=== PATIENT | male | born 1985 | race Caucasian/White ===

== ENCOUNTER 2019-05-27 19:41 | Emergency (ER) | payer BC, OTHER ==
[~2019-05-27] VITALS: Ht 172.7 cm; Wt 74.8 kg
[2019-05-27] MEDS: NS IV 1000 ML 1,000 ML IV SCH (20:39)
[2019-05-27] MEDS: fentaNYL INJECTION 100 MCG/2 ML AMP IVP ONE (20:39)
--- NOTE | 2019-05-27 20:45 | Diagnostic Imaging Report ---
INDICATION: Left knee pain after injury. COMPARISON: None available. TECHNIQUE: AP and lateral views of the left tibia and fibula were obtained. FINDINGS: There is an acute and mildly comminuted fracture involving the proximal tibia. The fracture extends to the metaphysis and likely into the medial tibial plateau articular surface. The degree of articular surface depression is limited on this examination. No fracture in the more distal aspect of the tibia or fibula. IMPRESSION: Acute, mildly comminuted fracture of the proximal tibia involves the metaphysis and medial tibial plateau. The degree of articular surface depression is limited in assessment on this exam. Consider CT of the left knee without contrast for more complete details. Dictated by: Dictated on workstation # [id number]
--- NOTE | 2019-05-27 20:48 | ED Lower Extremity ---
General Chief Complaint: Lower Extremity Stated Complaint: KNEE INJ Nursing Triage Note: PT WAKEBOARDING AND FELL OFF INJURING LEFT KNEE Nursing Sepsis Screen: No Definite Risk Source: patient Exam Limitations: no limitations History of Present Illness Date Seen by Provider: May 27, 2019 Time Seen by Provider: 20:20 Initial Comments The patient is a pleasant 33-year-old male presents for evaluation of a left lower extremity injury which she sustained while wake boarding. He states that he fell down hard and landed on his knee. He has been unable to bear weight and felt a pop in his leg. Upon arrival he has an obvious deformity to the left knee. He denies any other complaints or injuries. He is alert and oriented 4, calm, and appears to be in no distress aside. Onset: just prior to arrival Pain/Injury Location: left knee Method of Injury: fell Modifying Factors: Improves With Movement (makes it worse) Allergies and Home Medications Allergies Coded Allergies: No Known Drug Allergies (Unverified , 05/27/19) Patient Home Medication List Home Medication List Reviewed: Yes Review of Systems Constitutional: no symptoms reported EENTM: no symptoms reported Respiratory: no symptoms reported Cardiovascular: no symptoms reported Gastrointestinal: no symptoms reported Genitourinary: no symptoms reported Musculoskeletal: joint swelling (left knee swelling and pain) Skin: no symptoms reported Psychiatric/Neurological: No Symptoms Reported All Other Systems Reviewed Negative Unless Noted: Yes Past Tcfwwkj-Vuqiod-Vzgwxw Hx Past Med/Social Hx: Reviewed Nursing Past Med/Soc Hx Patient Social History Alcohol Use: Denies Use Recreational Drug Use: No Smoking Status: Never a Smoker 2nd Hand Smoke Exposure: No Recent Foreign Travel: No Contact w/Someone Who Travel: No Recent Infectious Disease Expo: No Recent Hopitalizations: No Physical Abuse: No Sexual Abuse: No Mistreated: No Past Medical History Surgeries: No Respiratory: No Cardiac: No Neurological: No Genitourinary: No Gastrointestinal: No Musculoskeletal: No Endocrine: No HEENT: No Cancer: No Psychosocial: No Integumentary: No Blood Disorders: No Physical Exam Vital Signs Vital Signs - First Documented 05/27/19 19:48 Temp 97.8 Pulse 90 Resp 18 B/P (MAP) 116/85 (95) Pulse Ox 98 O2 Delivery Room Air Capillary Refill : Less Than 3 Seconds Height, Weight, BMI Height: 5'8.00" Weight: 165lbs. oz. 74.420800ik; BMI Method:Stated General Appearance: WD/WN, no apparent distress Neck: non-tender, full range of motion, supple Cardiovascular: regular rate, rhythm, no edema Respiratory: chest non-tender, lungs clear, normal breath sounds, no respiratory distress, no accessory muscle use Gastrointestinal: normal bowel sounds, soft Back: normal inspection Hips: bilateral hip non-tender, bilateral hip normal inspection, bilateral hip normal range of motion Knees: left knee bone tenderness, left knee deformity, left knee pain, left knee soft tissue tenderness, left knee swelling Ankles: bilateral ankle non-tender, bilateral ankle normal inspection, bilateral ankle normal range of motion, bilateral ankle no evidence of injury Feet: bilateral foot non-tender, bilateral foot normal inspection, bilateral foot normal range of motion, bilateral foot no evidence of injury Neurologic/Tendon: normal sensation, normal motor functions, normal tendon functions Neurologic/Psychiatric: rosin barrel filler II-XII nml as tested, no motor/sensory deficits, alert, normal mood/affect, oriented x 3 Skin: normal color, warm/dry Progress/Results/Core Measures Results/Orders My Orders Orders - EMILY CHATMAN DO Tibia Fibula 2 View Left (05/27/19 20:11) Ed Iv/Invasive Line Start (05/27/19 20:11) Nothing By Mouth (05/28/19 Breakfast) Ice: Apply To Affected Area (05/27/19 20:13) Cbc With Automated Diff (05/27/19 20:15) Comprehensive Metabolic Panel (05/27/19 20:15) Fentanyl Injection (Sublimaze Injection (05/27/19 20:15) Ns Iv 1000 Ml (Sodium Chloride 0.9%) (05/27/19 20:15) Medications Given in ED Current Medications Medications Dose Ordered Sig/Jossy Route Start Time Stop Time Status Last Admin Dose Admin Fentanyl Citrate 75 mcg ONCE ONCE IVP 05/27/19 20:15 05/27/19 20:17 DC 05/27/19 20:39 75 MCG Vital Signs/I&O 05/27/19 19:48 Temp 97.8 Pulse 90 Resp 18 B/P (MAP) 116/85 (95) Pulse Ox 98 O2 Delivery Room Air Blood Pressure Mean: 95 Progress Progress Note : Progress Note @2100 - patient and family updated on x-ray result and the patient will need to be transferred to a trauma center as this is a complicated injury. @2114 - Dr. Wolf at [facility] accepts the ER-to-ER trauma transfer. The pt will go by EMS. Splint will be applied prior to transfer. Diagnostic Imaging Comments [facility]. [place], [place] NAME: CAREY CUEVAS [facility] REC#: [id number] PT STATUS: REG ER : 1985 PHYSICIAN: EMILY CHATMAN DO ADMIT DATE: 05/27/19/ER FS Draft Date of Exam:05/27/19 TIBIA FIBULA 2 VIEW LEFT INDICATION: Left knee pain after injury. COMPARISON: None available. TECHNIQUE: AP and lateral views of the left tibia and fibula were obtained. FINDINGS: There is an acute and mildly comminuted fracture involving the proximal tibia. The fracture extends to the metaphysis and likely into the medial tibial plateau articular surface. The degree of articular surface depression is limited on this examination. No fracture in the more distal aspect of the tibia or fibula. IMPRESSION: Acute, mildly comminuted fracture of the proximal tibia involves the metaphysis and medial tibial plateau. The degree of articular surface depression is limited in assessment on this exam. Consider CT of the left knee without contrast for more complete details. Dictated on workstation # [id number] Dict: 05/27/192037 Trans: 05/27/192044 [facility] [id number] Interpreted by: WAGNER JAIN MD Electronically signed by: Departure Impression Primary Impression: Closed fracture of left proximal tibia Additional Impression: Tibial plateau fracture, left Disposition: 02 XFER SHT-TRM HOSP Condition: Stable Transfer Time Spoke to Accepting Phy: 20:55 Transfer Progress Notes @2054 - No ortho coverage available here (Spoke with Dr. Tellez who states he does not cover this emergency department). Pt will benefit from a trauma center. He prefers to be transferred to [facility] in [place]. [facility] called at this time. Transfer Time: 21:30 Transfer Facility: [facility] Method of Transfer: EMS Departure-Patient Inst. Referrals: NO,LOCAL PHYSICIAN (PCP) Primary Care Physician EMILY CHATMAN DO May 27, 2019 20:48
[2019-05-27] MEDS: ONDANSETRON 4 MG/2 ML (SDV) Z0FRAN IVP ONE (21:42)
[2019-05-27] MEDS: HYDROmorphone 2 MG/ML VIAL (DILAUDID) IV ONE ×2 (21:46→22:24)
[2019-05-27 21:54] LABS: HEMATOCRIT 40 % (40-54); HEMOGLOBIN 13.4 G/DL (13.3-17.7); MEAN CORPUSCULAR HEMOGLOBIN 29 PG (25-34); MEAN CORPUSCULAR HGB CONC 33 G/DL (32-36); MEAN CORPUSCULAR VOLUME 86 FL (80-99); WHITE BLOOD COUNT 27.5 10^3/uL (4.3-11.0)
[2019-05-27 21:55] LABS: BASOPHILS % (AUTO) 0 % (0-10); EOSINOPHILS % (AUTO) 0 % (0-10); LYMPHOCYTES % (AUTO) 6 % (12-44); MEAN PLATELET VOLUME 11.2 FL (7.4-10.4); MONOCYTES % (AUTO) 8 % (0-12); NEUTROPHILS % (AUTO) 85 % (42-75); PLATELET COUNT 304 10^3/uL (130-400)
[2019-05-27 21:56] LABS: BASOPHILS # (AUTO) 0.1 10^3/uL (0.0-0.1); EOSINOPHILS # (AUTO) 0.1 10^3/uL (0.0-0.3); LYMPHOCYTES # (AUTO) 1.8 X 10^3 (1.0-4.0); MONOCYTES # (AUTO) 2.2 X 10^3 (0.0-1.0); NEUTROPHILS # (AUTO) 23.2 X 10^3 (1.8-7.8)
[2019-05-27 22:14] VITALS: BP 115/69
[2019-05-27 22:16] LABS: BAND NEUTROPHILS 18 %; BASOPHILS % (MANUAL) 0 %; EOSINOPHILS % (MANUAL) 1 %; LYMPHOCYTES % (MANUAL) 6 %; MONOCYTES % (MANUAL) 10 %; NEUTROPHILS % (MANUAL) 65 %
[2019-05-27 22:20] LABS: BUN/CREATININE RATIO 20; CARBON DIOXIDE 21 MMOL/L (21-32); CHLORIDE 102 MMOL/L (98-107); CREATININE SERUM 0.83 MG/DL (0.60-1.30); GFR ESTIMATED > 60; POTASSIUM 4.7 MMOL/L (3.6-5.0); SODIUM 139 MMOL/L (135-145)
[2019-05-27 22:21] LABS: ALANINE AMINOTRANSFERASE 20 U/L (0-55); ALBUMIN 4.2 GM/DL (3.2-4.5); ALKALINE PHOSPHATASE 42 U/L (40-136); BILIRUBIN,TOTAL 0.4 MG/DL (0.1-1.0); CALCIUM 8.8 MG/DL (8.5-10.1); GLUCOSE 134 MG/DL (70-105)
== END 2019-05-27 22:40 | disposition short-term general hospital (02) ==
LOC: ER FS 19:43
DX: S82.142A Displaced bicondylar fracture of left tibia, initial encounter for closed fracture (principal); S82.252A Displaced comminuted fracture of shaft of left tibia, initial encounter for closed fracture; V93.33XA Fall on board other powered watercraft, initial encounter
CPT/HCPCS: 36415; 73590; 80053; 85007; 85027